=== PATIENT | female | born 1995 | race Caucasian/White ===

== ENCOUNTER 2016-04-27 11:19 | Outpatient (CLI) | payer MEDICAID ==
--- NOTE | 2016-04-27 12:25 | Non Stress Test Report ---
Non Stress Test Datetime Report Generated by CPN: 04/27/2016 12:25 DEMOGRAPHIC EGA NST: 37.6 INDICATION Indication for Study: Ordered by Provider Indication for Study (NST) Other: Repeat NST from office MONITORING Monitor Explained: Monitor Explained; Test Explained; Patient Verbalized Understanding Time on Monitor: 04/27/2016 11:39 Time off Monitor: 04/27/2016 12:30 NST Duration: 51 NST INTERVENTIONS NST Interventions: PO Hydration Physician Notified NST: Dr. Neilsen BABY A: [id number] BABY A Movement : Present Contraction Frequency : Irr FHR Baseline : 135 Accelerations : 15X15 Decelerations : None Variability : Moderate 6-25bpm NST Review: Meets Criteria for Reactive NST NST Review and Verified By : SAI ABBOTT RN NST Results: Reactive NST REPORT Report Trigger: Send Report
== END 2016-04-27 12:28 | disposition home or self-care (01) ==
LOC: LC 11:19
PROVIDERS: ATTEND Specialist
PROC: 4A1HXCZ Monitoring of Products of Conception, Cardiac Rate, External Approach (ICD-10-PCS; principal; 2016-04-27)
DX: O47.1 False labor at or after 37 completed weeks of gestation (principal); Z3A.37 37 weeks gestation of pregnancy
CPT/HCPCS: 59025